=== PATIENT | female | born 1965 | race Caucasian/White ===

== ENCOUNTER 2017-08-27 08:02 | Emergency (ER) | payer BC ==
[2017-08-27 08:12] VITALS: BP 111/68
--- NOTE | 2017-08-28 18:45 | UC ---
Delaney Gleason Nilda, scribed for Kb Young MD on 08/27/17 at 0831 . Throat Pain/Nasal [place] HPI - HPI Summary HPI Summary: This patient is a 51 year old F [place] [facility] [place] chief complaint of constant progressively worsening sore throat since yesterday. The patient rates the aching pain 2/10 in severity. Symptoms aggravated by nothing but alleviated by medication. Patient reports headache, chills, fever, myalgia, and nausea. Pt states recent strep exposure at home. - History of Current Complaint Chief Complaint: UCGeneralIllness Stated Complaint: SORE THROAT Time Seen by Provider: 08/27/17 08:05 Hx Obtained From: Patient Hx Last Menstrual Period: Jun 2013 Onset/Duration: Sudden Onset, Lasting Hours, Still Present Severity: Mild Pain Intensity: 2 Pain Scale Used: 0-10 Numeric Cough: Nonproductive Associated Signs & Symptoms: Positive: Other - sore throat, headache, chills, fever, myalgia, and nausea - Allergies/Home Medications Allergies/Adverse Reactions: Allergies Allergy/AdvReac Type Severity Reaction Status Date / Time No Known Allergies Allergy Verified 08/27/17 08:11 Home Medications: Home Medications Acetaminophen [APAP] 3 tab PO Q6HR PRN 08/27/17 [History Confirmed 08/27/17] FLUoxetine CAP* [Prozac CAP*] 10 mg PO DAILY 08/27/17 [History Confirmed ] Vitamin B Complex CAP* [B Complex CAP*] 1 tab PO DAILY 08/27/17 [History Confirmed 08/27/17] PMH/Surg Hx/FS Hx/Imm Hx Cancer History: Breast Cancer - Surgical History Surgical History: Yes Surgery Procedure, Year, and Place: . Lymph node removal - Family History Known Family History: Positive: Cardiac Disease, Other - breast cancer - Social History Lives: With Family Alcohol Use: Rare Substance Use Type: None Smoking Status (MU): Never Smoked Tobacco Review of Systems Constitutional: Fever, Chills ENT: Sore Throat Gastrointestinal: Nausea Musculoskeletal: Myalgia Neurological: Headache All Other Systems Reviewed And Are Negative: Yes Physical Exam Triage Information Reviewed: Yes Vital Signs: Initial Vital Signs Temp 98.2 F 08/27/17 08:06 Pulse 89 08/27/17 08:06 Resp 16 08/27/17 08:06 BP 111/68 08/27/17 08:06 Pulse Ox 97 08/27/17 08:06 Vital Signs Reviewed: Yes - Additional Comments GENERAL: Patient is a well developed and nourished F who is lying comfortable in the stretcher. Patient is not in any acute respiratory distress. HEAD AND FACE: Normocephalic EYES: PERRLA, EOMI x 2. EARS: Hearing grossly intact. MOUTH:Pharyngeal erythema NECK: Supple, trachea is midline, R-side lymphadenopathy, no JVD, no carotid bruit. CHEST: Symmetric, no tenderness at palpation LUNGS: Clear to auscultation bilaterally. No wheezing or crackles. CVS: Regular rate and rhythm, S1 and S2 present, no murmurs or gallops appreciated. ABDOMEN: Soft, non-tender. Bowel sounds are normal. No abdominal abnormal pulsations. EXTREMITIES: Full ROM in all major joints, no edema, no cyanosis or clubbing. NEURO: Alert and oriented x 3. No acute neurological deficits. Speech is normal and follows commands. SKIN: Dry and warm Throat Pain/Nasal Course/Dx - Course Assessment/Plan: This patient is a 51 year old F [place] [facility] [place] a chief complaint of constant progressively worsening sore throat since yesterday. The patient rates the aching pain 2/10 in severity. Symptoms aggravated by nothing but alleviated by medication. Patient reports headache, chills, fever, myalgia, and nausea. Pt states recent strep exposure at home. Pending labs. Labs reveal: Rapid Strep +. Pt is stable and will be D/C with a Dx of strep throat and a prescription for Augmentin. I discussed all the findings and test results with the patient. Pt was instructed to return to the urgent care or go to ER immediately if any of the symptoms return or worsens. Plan of care was discussed with the patient and pt understands and agrees. All questions were answered to patient satisfaction. There were no further complaints or concerns. - Differential Dx/Diagnosis Provider Diagnoses: strep throat Discharge - Discharge Plan Condition: Stable Disposition: HOME Prescriptions: Amoxicillin/Clavulanate TAB* [Augmentin TAB 875*] 875 mg PO BID #20 tab Patient Education Materials: Strep Throat (ED) Referrals: Nohemy Lisa MD [Primary Care Provider] - 3 Days Additional Instructions: Return to the urgent care or go to ER immediately if any of the symptoms return or worsens. The documentation as recorded by the Delaney kiser Nilda accurately reflects the service I personally performed and the decisions made by , Kb Young MD.
== END 2017-08-27 08:45 | disposition home or self-care (01) ==
LOC: UCEAST 08:02
DX: J02.0 Streptococcal pharyngitis (principal); Z85.3 Personal history of malignant neoplasm of breast
CPT/HCPCS: 87651; 99212; G0463

== ENCOUNTER 2018-01-06 16:43 | Emergency (ER) | payer BC ==
[2018-01-06 17:34] VITALS: BP 121/72
--- NOTE | 2018-01-06 19:08 | UC ---
Ayala Gleason Rebecca, scribed for Lisa Flores MD on 01/06/18 at 1853 . Skin Complaint HPI - HPI Summary HPI Summary: Pt is a 52 yo M who presents to [facility] c/o raised, erythematous, pruritic rash. Sx began Thursday morning (3 days ago) as a bump above her left eye, then spread to her neck and then her right arm. Pt reports that the rash is primarily itchy , without pain. On triage, pain was noted to be 6/10 but on exam she denies pain. Has been treating with OTC poison tammy Tx and Benadryl at night. Denies any eye pain, SOB, mouth swelling, and any rash on the abdomen or LE. Has had prior reactions to poison tammy which are resolved by steroids. Does not wear contacts. Pt's medications reviewed this visit - History of Current Complaint Chief Complaint: [facility] Time Seen by Provider: 01/06/18 18:46 Stated Complaint: RASHES,EYELID,NECK,ARMS Hx Obtained From: Patient Hx Last Menstrual Period: Jun 2013 Onset/Duration: Lasting Days - 3 days, Still Present Onset Severity: Moderate - On triage Current Severity: None Pain Intensity: 6 - On triage, on exam 0/10 Pain Scale Used: 0-10 Numeric Location: Other - Left side of neck, right arm, above left eye Character: Pruritus, Redness, Raised Aggravating Factor(s): Nothing Alleviating Factor(s): Antihistamines - Benadryl, Other - OTC poison tammy Tx Associated Signs & Symptoms: Positive: Negative - Allergy/Home Medications Allergies/Adverse Reactions: Allergies Allergy/AdvReac Type Severity Reaction Status Date / Time No Known Allergies Allergy Verified 01/06/18 17:34 Home Medications: Home Medications diphenhydrAMINE HCl [Benadryl Allergy] 25 mg PO 01/06/18 [History] Review of Systems Constitutional: Negative Skin: Rash - Pruritic, erythematous, raised rash above left eye, on neck and right arm Eyes: Negative ENT: Negative Respiratory: Negative Cardiovascular: Negative Gastrointestinal: Negative Genitourinary: Negative Motor: Negative Neurovascular: Negative Musculoskeletal: Negative Neurological: Negative Psychological: Negative All Other Systems Reviewed And Are Negative: Yes - Comments Additional Review of Systems Comments: NEGATIVE: Eye pain, SOB, mouth swelling, and abdominal or LE rash PMH/Surg Hx/FS Hx/Imm Hx - Additional Past Medical History Additional PMH: NEGATIVE PMHx: HTN, DM, Thyroid disease, COPD Previously Healthy: Yes Psychological History: Anxiety, Depression - Surgical History Surgical History: Yes Surgery Procedure, Year, and Place: . Lymph node removal - Family History Known Family History: Positive: Cardiac Disease, Other - breast cancer - Social History Occupation: Employed Full-time Lives: With Family Alcohol Use: Weekly Substance Use Type: None Smoking Status (MU): Never Smoked Tobacco Physical Exam - Summary Physical Exam Summary: Vital Signs Reviewed: Yes A+Ox3, no distress Eyes: Conjunctiva Clear, KAYLA eom intact and full, no injected ENT: Hearing grossly normal TM x 2 clear no lesion lobes, canal turbinates inflammed and full mmmoist no exudate neck: supple Respiratory: Positive: No respiratory distress, No accessory muscle use CTA throughotu no w/r Cardiovascular: skin color reflect adequate perfusion RRR nl s1, s2 no m/r Musculoskeletal Exam: ANDRE x 4 without difficulty Neurological: Positive: Alert, ambulatory without difficulty Psychological: Positive: Normal Response To Family Skin: Positive: no ecchymosis , pt with scaly, raised patches left lagteral eye , posterior occiput at base of scalp, right forearm, hand c/w contact dermatitis Triage Information Reviewed: Yes Vital Signs: Initial Vital Signs Temp 98.1 F 01/06/18 17:28 Pulse 57 01/06/18 17:28 Resp 18 01/06/18 17:28 BP 121/72 01/06/18 17:28 Pulse Ox 98 01/06/18 17:28 Course/Dx - Course Course Of Treatment: Patient medications reviewed this visit. Pt with apparent contact dermatitis on face, neck right UE left hand. no concern for celluitis. pred taper. wound care. bendaryl with precautions - Diagnoses Provider Diagnoses: contact drematitis Discharge - Sign-Out/Discharge Documenting (check all that apply): Discharge/Admit/Transfer - Discharge - Discharge Plan Condition: Stable Disposition: HOME Prescriptions: predniSONE TAB* [Deltasone 20 MG TAB*] 20 mg PO DAILY #13 tab Patient Education Materials: Contact Dermatitis (ED), Poison Tammy (ED) Referrals: Nohemy Lisa MD [Primary Care Provider] - Dhaval Burns MD [Medical Doctor] - If Needed Additional Instructions: - Take prednisone exactly as prescribed until gone - starting today - Okay to take Benadryl (1-2 tablets) every 6 hours as needed. This medication may cause drowsiness - do NOT drive, operate machinery or drink alcohol while taking Benadryl -Avoid getting over heated (hot showers, hot tubs, exercise) for at least 48 hours - Try to avoid aspirin, NSAIDs (Motrin, Aleve, Naprosyn) for 2-3 days - Okay to use benadryl cream t the lesions for itching, - Okay to apply cool compresses to the area of injury - If you develop any symptoms in your eye (blurry, tearing, pain) it is recommended you contact Dr. Burns, eye doctor, for an evaluations, -Contact your doctor or return here with questions or concerns - Billing Disposition and Condition Condition: STABLE Disposition: Home The documentation as recorded by the Ayala kiser Rebecca accurately reflects the service I personally performed and the decisions made by me, Lisa Flores MD.
== END 2018-01-06 19:19 | disposition home or self-care (01) ==
LOC: UCEAST 16:43
DX: L25.9 Unspecified contact dermatitis, unspecified cause (principal)
CPT/HCPCS: 99212; G0463

== ENCOUNTER 2018-02-21 19:08 | Emergency (ER) | payer BC ==
[2018-02-21 19:20] VITALS: BP 113/77
--- NOTE | 2018-02-21 19:30 | UC ---
General HPI - HPI Summary HPI Summary: This is margi Morrison documenting for attending Carolina Greenberg MD. Pt is a 52 y/o F c/o sore throat onset ~1 week ago worsening yesterday around 1530. Assoc. Sx: fever, CORONEL, sore throat, non-productive cough, abd pain. Denies : CP, SOB, rash, ear pain. PMHx: Anxiety. She says that she has had contact with 3 peoplein her family that have been treated for strep throat. - History of Current Complaint Chief Complaint: UCRespiratory Stated Complaint: THROAT & HEAD PAIN,ACHES Time Seen by Provider: 02/21/18 19:16 Hx Obtained From: Patient Hx Last Menstrual Period: Jun 2013 Onset/Duration: Gradual Onset, Lasting Weeks, Still Present, Worse Since - yesterday Current Severity: Severe Pain Intensity: 8 Associated Signs & Symptoms: Positive: Abdominal Pain - sore, Cough - non productive, Fever, Headache, Other - sore throat. Negative: Chest Pain, Diarrhea, Nausea, SOB, Vomiting - Allergy/Home Medications Allergies/Adverse Reactions: Allergies Allergy/AdvReac Type Severity Reaction Status Date / Time No Known Allergies Allergy Verified 02/21/18 19:20 PMH/Surg Hx/FS Hx/Imm Hx Previously Healthy: Yes Other Endocrine History: negative Other Cardiovascular History: Negative: CAD, HTN Other Respiratory History: negative Other GI/ History: negative Other Neurological History: negative Psychological History: Anxiety Other Psychological History: negative Other Cancer History: negative - Surgical History Surgical History: Yes Surgery Procedure, Year, and Place: . Lymph node removal - Family History Known Family History: Positive: Cardiac Disease, Other - breast cancer - Social History Occupation: Employed Full-time Lives: With Family Alcohol Use: Occasionally Substance Use Type: None Smoking Status (MU): Never Smoked Tobacco Review of Systems Constitutional: Fever Skin: Negative - rash Eyes: Negative ENT: Negative - ear ache, Sore Throat Respiratory: Cough - non productive Cardiovascular: Negative - CP Gastrointestinal: Abdominal Pain - sore Genitourinary: Negative Motor: Negative Neurovascular: Negative Musculoskeletal: Negative Neurological: Headache - Frontal Is Patient Immunocompromised?: No All Other Systems Reviewed And Are Negative: Yes Physical Exam - Summary Physical Exam Summary: Physical Exam: Const: Appears well. No signs of apparent distress present. Alert and oriented x 3. Musculo: Walks with a normal gait. Head/Face: Atraumatic, normocephalic on inspection. Eyes: EOMI and PERRLA in both eyes. Conjunctivae clear. No discharge noted ENT: Hearing normal, TM normal appearing bilaterally . Mild pharyngeal erythema without any exudates. There is tender anterior lymphadenopathy. Respiratory: Respirations are unlabored. Lungs clear to auscultation bilaterally, no wheezing , rhonchi or rales noted . CVS: Regular rate and Rhythm, S1S2 normal , no murmurs identified. Extremities: Peripheral circulation is grossly normal. Pulses 2+ Abdomen : Soft non tender , nondistended , Bowel sounds present . No guarding , rebound tenderness or rigidity noted. Skin: No lesions or rash located on the upper extremities or on the lower extremities. Neuro: Cranial nerves II to XII intact, motor and sensory intact. DTR Intact bilaterally. Mood is normal. Affect is normal. Triage Information Reviewed: Yes Vital Signs: Initial Vital Signs Temp 100.4 F 02/21/18 19:17 Pulse 71 02/21/18 19:17 Resp 18 02/21/18 19:17 BP 113/77 02/21/18 19:17 Pulse Ox 98 02/21/18 19:17 Vital Signs Reviewed: Yes Course/Dx - Course Course Of Treatment: During the visit today, we obtained a rapid strep test that was positive . We discussed the findings and further plan. I will prescribe the medication to the pharmacy . Patient expressed understanding . - Differential Dx - Multi-Symptom Provider Diagnoses: Strep pharyngitis Discharge - Sign-Out/Discharge Documenting (check all that apply): Patient Departure - Discharge Plan Condition: Stable Disposition: HOME Prescriptions: Amoxicillin PO (*) [Amoxicillin 500 MG CAP*] 500 mg PO Q12H 10 Days #20 cap Patient Education Materials: Strep Throat (ED) Referrals: Nohemy Lisa MD [Primary Care Provider] - 1 Week Additional Instructions: Start taking the antibiotic . It has been prescribed to the pharmacy . Follow up with your primary care doctor in 1 week if needed. Return to Urgent care / ER if symptoms get worse. - Billing Disposition and Condition Condition: STABLE Disposition: Home
[2018-02-21] MEDS ORDERED: Amoxicillin PO (*) 500 MG CAP PO ONE (19:41)
== END 2018-02-21 19:55 | disposition home or self-care (01) ==
LOC: UCEAST 19:08
DX: J02.0 Streptococcal pharyngitis (principal); R21 Rash and other nonspecific skin eruption; R10.9 Unspecified abdominal pain
CPT/HCPCS: 87651; 99212; A9270-GY; G0463

== ENCOUNTER 2019-08-24 07:04 | Emergency (ER) | payer BC ==
[2019-08-24 07:19] VITALS: BP 137/78
--- NOTE | 2019-08-24 07:36 | UC ---
Respiratory Complaint HPI - HPI Summary HPI Summary: A FEW DAYS OF COUGH, CONGESTION, SORE THROAT AND PAIN WITH SWALLOWING. FEELS FATIGUED AND OVERALL UNWELL. NO FEVER, NAUSEA/VOMITING. NO HEADACHE. NO FLU SHOT THIS SEASON. HAS TO TAKE CARE OF HER ELDERLY MOTHER THIS WEEKEND AND SO WAS CONCERNED ABOUT ILLNESS. - History of Current Complaint Chief Complaint: UCGeneralIllness Stated Complaint: THROAT PAIN,CONGESTION Time Seen by Provider: 08/24/19 07:31 Hx Obtained From: Patient Hx Last Menstrual Period: Jun 2013 Onset/Duration: Gradual Onset, Lasting Days, Still Present Timing: Constant Severity Initially: Moderate Severity Currently: Moderate Pain Intensity: 4 Pain Scale Used: 0-10 Numeric Character: Cough: Nonproductive Aggravating Factors: Nothing Alleviating Factors: Nothing Associated Signs And Symptoms: Positive: URI, Nasal Congestion. 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 Lymph node removal - Family History Known Family History: Positive: Cardiac Disease, Other - breast cancer - Social History Alcohol Use: Occasionally Substance Use Type: None Smoking Status (MU): Never Smoked Tobacco Review of Systems All Other Systems Reviewed And Are Negative: Yes Constitutional: Positive: Fatigue ENT: Positive: Sore Throat, Nasal Discharge Respiratory: Positive: Cough Cardiovascular: Positive: Negative Gastrointestinal: Positive: Negative Physical Exam Triage Information Reviewed: Yes Appearance: Well-Appearing, No Pain Distress, Well-Nourished Vital Signs: Initial Vital Signs Temp 99.0 F 08/24/19 07:14 Pulse 86 08/24/19 07:14 Resp 18 08/24/19 07:14 BP 137/78 08/24/19 07:14 Pulse Ox 97 08/24/19 07:14 Laboratory Tests 08/24/19 08/24/19 07:37 07:40 Influenza A (Rapid) Negative Influenza B (Rapid) Negative Group A Strep Rapid Negative Vital Signs Reviewed: Yes Eyes: Positive: Conjunctiva Clear ENT: Positive: Hearing grossly normal, Pharyngeal erythema, TMs normal. Negative: Tonsillar swelling, Tonsillar exudate Neck: Positive: Supple, Nontender, No Lymphadenopathy Respiratory Exam: Normal Cardiovascular Exam: Normal Abdomen Description: Positive: Soft Musculoskeletal: Positive: No Edema Neurological: Positive: Alert Psychological: Positive: Age Appropriate Behavior Skin: Negative: Rashes Respiratory Course/Dx - Course Course Of Treatment: FLU NEGATIVE. STREP NEGATIVE. LIKELY VIRALLY MEDIATED SYMPTOMS THAT SHOULD RESOLVE ON THEIR OWN WITH TIME. REST, HYDRATE, OTC MEDICATIONS NEEDED. FOLLOW-UP IF NOT IMPROVING EXPECTED OVER THE NEXT 1-2 WEEKS. - Differential Dx/Diagnosis Provider Diagnosis: Acute URI Discharge ED - Sign-Out/Discharge Documenting (check all that apply): Patient Departure All imaging exams completed and their final reports reviewed: No Studies - Discharge Plan Condition: Stable Disposition: HOME Patient Education Materials: Upper Respiratory Infection (ED) Referrals: Nohemy Lisa MD [Primary Care Provider] - If Needed Additional Instructions: STREP NEGATIVE. FLU NEGATIVE. YOUR SYMPTOMS ARE LIKELY VIRALLY MEDIATED AND SHOULD RESOLVE ON THEIR OWN WITH TIME. NO INDICATION FOR ANTIBIOTICS AT PRESENT. REST, HYDRATE, OTC MEDS NEEDED. SEEK FOLLOW-UP IF YOU ARE NOT IMPROVING OVER THE NEXT 1-2 WEEKS. USE OTC AFRIN FOR NASAL CONGESTION. 2 SPRAYS IN EACH NOSTRIL TWICE DAILY NEEDED. DO NOT USE FOR MORE THAN 3-4 DAYS IN A ROW TO PREVENT DEVELOPING REBOUND CONGESTION. - Billing Disposition and Condition Condition: STABLE Disposition: Home
[2019-08-24 07:51] LABS: Influenza A Molecular Negative (Negative); Influenza B Molecular Negative (Negative)
== END 2019-08-24 08:05 | disposition home or self-care (01) ==
LOC: UCEAST 07:04
DX: J06.9 Acute upper respiratory infection, unspecified (principal)
CPT/HCPCS: 87651; 99211; G0463